=== PATIENT | male | born 1975 | race Caucasian/White ===

== ENCOUNTER 2018-04-10 21:54 | Inpatient (IN) ==
[2018-04-10] MEDS ORDERED: Lidocaine 1%/Epinephrine 1:100,000 Inj 50 ML Vial INFILTRATN ONE (23:04)
[2018-04-10] MEDS ORDERED: Tetanus/Diphtheria Toxoid Adult Vaccine Inj 0.5 ML Vial IM ONE (23:04)
--- NOTE | 2018-04-10 23:08 | ED ---
HPI General Chief complaint: Psychiatric Symptoms Stated complaint: Transfer from [facility]/Psych screen Time Seen by Provider: 04/10/18 23:02 History of Present Illness HPI narrative: This is a 42-year-old male who presents under Nguyen act initially by the Police Department. According to his paperwork yesterday he attempted to kill himself by overdosing on clonazepam and cutting his left wrist. He reports that he has been feeling suicidal for "a while." Symptoms are moderate, duration unknown, no obvious aggravating or alleviating factors. Denies any illicit drug use. Endorses occasional alcohol use. Denies any homicidal ideations, auditory visual hallucinations. Last tetanus vaccination unknown. Denies any numbness or tingling or range of motion limitations in the left hand or wrist. No other complaints. Related Data Home Medications Medication Instructions Recorded Confirmed clonazepam [Klonopin] HS 04/10/18 escitalopram oxalate [Lexapro] 20 mg PO DAILY 04/10/18 04/10/18 lamotrigine [Lamictal] 150 mg PO BID 04/10/18 04/10/18 Allergies Allergy/AdvReac Type Severity Reaction Status Date / Time No Known Allergies Allergy Unverified 04/10/18 22:09 Review of Systems ROS: all other systems reviewed are negative [facility] Medical History Medical History Anxiety (Acute) Bipolar disorder (Acute) Depression (Acute) GERD (gastroesophageal reflux disease) (Acute) Social History Social History Substance History: Active Abuse and Past History Second Hand Smoke Exposure: No Smoking Status: Former smoker Tobacco Type: Cigarettes How Often Do You Have a Drink Containing Alcohol: 2 to 3 times a week Recent Travel in [facility] within the Last 8 Weeks: No Recent Out of Country Travel within the Last 8 Weeks: No Substance Abuse Detail Alcohol: Substance Use Status: Active Route Used Substance Abuse: By Mouth Substance Frequency: 6 pack a week Reason for Use: Calm Down Immunization History Tetanus Immunization: Unsure Hx Influenza Vaccine This Season: No Exam Narrative Exam Narrative: GENERAL: Well-developed well-nourished male no acute distress SKIN: Warm and dry. 5 cm laceration volar aspect left wrist no bleeding currently. HEAD: Atraumatic. Normocephalic. EYES: Pupils equal and round. No scleral icterus. No injection or drainage. ENT: No nasal bleeding or discharge. Mucous membranes pink and moist. NECK: Trachea midline. No JVD. CARDIOVASCULAR: Regular rate and rhythm. No murmur appreciated. RESPIRATORY: No accessory muscle use. Clear to auscultation. Breath sounds equal bilaterally. GASTROINTESTINAL: Abdomen soft, non-tender, nondistended. Hepatic and splenic margins not palpable. MUSCULOSKELETAL: No obvious deformities. Skin as noted above. The patient maintains full range of motion and full strength in the left hand and left wrist. Distal sensation is preserved in the median radial and ulnar nerve distributions, capillary refill less than 2 seconds all digits left hand, 2+ radial pulse. NEUROLOGICAL: Awake and alert. No obvious cranial nerve deficits. Motor grossly within normal limits. Normal speech. PSYCHIATRIC: Depressed mood. Procedures Laceration Laceration 1: Site: upper extremity Side (If applicable): left Size (cm): 5 Description: irregular Depth: simple, single layer Anesthetic used: with epi Anesthesia technique:: local infiltration Amount (mL): 8 Pre-repair:: wound explored and irrigated extensively Skin layer closed with: other (PROLENE) Size (cm): 3-0 Number of sutures:: 10 Technique:: simple, interrupted Course Initial Documented Vital Signs Temperature 98.2 F 04/10/18 22:11 Pulse Rate 80 04/10/18 22:11 Respiratory Rate 16 04/10/18 22:11 Blood Pressure 130/75 04/10/18 22:11 Pulse Oximetry 98 04/10/18 22:11 Last Documented Vital Signs Temperature 98.2 F 04/10/18 22:11 Pulse Rate 80 04/10/18 22:11 Respiratory Rate 18 04/11/18 00:00 Blood Pressure 130/75 04/10/18 22:11 Pulse Oximetry 98 04/10/18 22:11 Medical Decision Making [facility] Narrative Medical decision making narrative: Tetanus status updated, laceration will be repaired, he verbally consents. Mental health screening discussed with the patient. Psychiatric screen ordered. The patient is medically cleared for psychiatric disposition. Medical Screen Exam Complete: Yes Emergency Medical Condition: Yes Differential Diagnosis Differential Diagnosis: Major depressive disorder, depressive disorder not otherwise specified, acute psychosis, substance-induced mood disorder, adjustment reaction Lab Data Result diagrams: 04/10/18 23:09 04/10/18 23:09 Lab Results 04/10/18 04/10/18 Range/Units 23:09 23:09 WBC 7.1 (4.0-11.0) th/mm3 RBC 4.48 L (4.50-5.90) mil/mm3 Hgb 13.6 (13.0-17.0) gm/dL Hct 40.5 (39.0-51.0) % MCV 90.2 (80.0-100.0) fL MCH 30.3 (27.0-34.0) pg MCHC 33.6 (32.0-36.0) % RDW 13.0 (11.6-17.2) % Plt Count 208 (150-450) th/mm3 MPV 8.9 (7.0-11.0) fL Neut % (Auto) 60.3 (16.0-70.0) % Lymph % (Auto) 29.6 (9.0-44.0) % [place]kins % (Auto) 8.4 H (0.0-8.0) % Eos % (Auto) 1.1 (0.0-4.0) % Baso % (Auto) 0.6 (0.0-2.0) % Neut # (Auto) 4.3 (1.8-7.7) th/mm3 Lymph # (Auto) 2.1 (1.0-4.8) th/mm3 [place] # (Auto) 0.6 (0.0-0.9) th/mm3 Eos # (Auto) 0.1 (0.0-0.4) th/mm3 Baso # (Auto) 0.0 (0.0-0.2) th/mm3 WBC Differential . Differential Comment Auto diff final Sodium 143 (136-145) meq/L Potassium 3.5 (3.5-5.1) meq/L Chloride 106 (98-107) meq/L Carbon Dioxide 31.0 (21.0-32.0) meq/L Anion Gap 6 (5-15) meq/L BUN 17 (7-18) mg/dL Creatinine 1.24 (0.60-1.30) mg/dL Estimated GFR 63 L (>89) mL/min Random Glucose 89 (74-106) mg/dL Calcium 8.5 (8.5-10.1) mg/dL Total Bilirubin 0.4 (0.2-1.0) mg/dL AST 16 (15-37) U/L ALT 39 (12-78) U/L Alkaline Phosphatase 81 (45-117) U/L Total Protein 8.1 (6.4-8.2) g/dL Albumin 3.8 (3.4-5.0) g/dL TSH 1.790 (0.358-3.740) uIU/mL Serum Alcohol Less than 3 (0-5) mg/dL Discharge Plan Discharge Disposition Patient Disposition: 30 Still Patient Discharge Condition Condition: Stable Discharge Details Diagnosis: Laceration of left upper extremity, Encounter for medical clearance for patient hold Physicians Team ED Provider: Adan Ortega ED Midlevel Provider: Freddy Foley Rxs /Orders / Referrals /Forms Prescriptions: No Action lamotrigine [Lamictal] 150 mg Tablet 150 mg PO BID RF: 0 clonazepam [Klonopin] 0.5 mg Tablet HS RF: 0 escitalopram oxalate [Lexapro] 20 mg Tablet 20 mg PO DAILY RF: 0 Discharge Instructions Additional Instructions: Wash the wound daily with soap and water and apply antibiotic cream. Return in approximately 10-14 days for suture removal. Status ED Status: Medically Cleared
[2018-04-10 23:25] LABS: Baso % (Auto) 0.6 % (0.0-2.0); Eos # (Auto) 0.1 th/mm3 (0.0-0.4); Eos % (Auto) 1.1 % (0.0-4.0); Hematocrit 40.5 % (39.0-51.0); Hemoglobin 13.6 gm/dL (13.0-17.0); Lymph # (Auto) 2.1 th/mm3 (1.0-4.8); Lymph % (Auto) 29.6 % (9.0-44.0); Mean Corpuscular HGB Conc 33.6 % (32.0-36.0); Mean Corpuscular Hemoglobin 30.3 pg (27.0-34.0); Mean Corpuscular Volume 90.2 fL (80.0-100.0); Mean Platelet Volume 8.9 fL (7.0-11.0); Mono # (Auto) 0.6 th/mm3 (0.0-0.9); Mono % (Auto) 8.4 % (0.0-8.0); Neut # (Auto) 4.3 th/mm3 (1.8-7.7); Neut % (Auto) 60.3 % (16.0-70.0); Platelet Count 208 th/mm3 (150-450); Red Blood Count 4.48 mil/mm3 (4.50-5.90); White Blood Count 7.1 th/mm3 (4.0-11.0)
[2018-04-10 23:45] LABS: Alanine Aminotransferase 39 U/L (12-78); Albumin 3.8 g/dL (3.4-5.0); Anion Gap 6 meq/L (5-15); Aspartate Aminotransferase 16 U/L (15-37); Blood Urea Nitrogen 17 mg/dL (7-18); Calcium 8.5 mg/dL (8.5-10.1); Chloride 106 meq/L (98-107); Glomerular Filtration Rate 63 mL/min (>89); Glucose,Random 89 mg/dL (74-106); Potassium 3.5 meq/L (3.5-5.1); Sodium 143 meq/L (136-145)
[2018-04-10 23:55] LABS: Alkaline Phosphatase 81 U/L (45-117); Total Protein 8.1 g/dL (6.4-8.2)
[2018-04-11] MEDS ORDERED: Aluminum/Magnesium/Simethacone Susp 30 ML UDC PO PRN (17:13)
[2018-04-11] MEDS ORDERED: LORazepam 1 MG Tablet PO PRN (17:13)
--- NOTE | 2018-04-11 17:51 | ED ---
HPI - Psych - General Source: patient Limitations: no limitations - History of Present Illness complaint: suicidal ideation Onset (ago): month(s) Duration: constant History of same: No - General Chief Complaint: Psychiatric Symptoms Stated Complaint: Transfer from [facility]/Psych screen Time Seen by Provider: 04/10/18 23:02 - History of Present Illness HPI Narrative: This is a 42 year-old patient who presents under a Nguyen act for a suicide attempt. Patient is not previously known to this psychiatry department. Reviewed electronic medical record, labs, discussed case with staff. Nurse reports patient has been no behavioral issues while here. He was evaluated in delta 37. I found him awake, alert, and oriented 4. His speech is clear, logical, organized, of normal gaston and volume. His mood and affect are sad. When asked if he still feels suicidal he responded, "I would choose another method this time, one that works". He denies homicidal ideation, auditory or visual hallucinations. His mood is sad and his affect is blunted. There is no indication of psychosis or leslie. When asked why he is here patient responds, "things are not that good I suppose ". He states that the suicide attempt was "a long time coming" and also that it was not spur of the moment he reports he has been planning this for "a long time". When asked what brought these feelings on he states, "I just exist I have no life". He reports that he lives with his and son. He works from his home and hates his job. He does not drive due to losing his license from [place]. States that part of the problem is that his has a good job, makes good money, and frequently takes vacations by herself. He goes on to say that they just exist together others and avoidance of conversations, "we discussed nothing of consequence". His son is 13 years old he seems to get along quite well with him is proud of them. He reports that he quit smoking "many years ago , drinks 1 sixpack a week, "that is my allotted ration", and denies using substances. Although, he states "I love cocaine but I have not use it in a really long time". He self reports intermittent feelings of paranoia and defensiveness. He states that he is under the care of Dr. Marcelino for bipolar disorder. He reports that he is being compliant with his medications. He states that his last inpatient admission was in 2008. However, he denies any previous suicidal attempts. Does report having been in her serrated for up to a year due to DUIs and driving infractions. (Ana Goodrich) - Related Data Home Medications Medication Instructions Recorded Confirmed clonazepam [Klonopin] HS 04/10/18 escitalopram oxalate [Lexapro] 20 mg PO DAILY 04/10/18 04/10/18 lamotrigine [Lamictal] 150 mg PO BID 04/10/18 04/10/18 Allergies Allergy/AdvReac Type Severity Reaction Status Date / Time No Known Allergies Allergy Unverified 04/10/18 22:09 Review of Systems All other systems reviewed negative except as [facility] - History History Provided By: Patient, Law Enforcement - Medical History Medical History: Medical History (Last Reviewed 04/11/18 @ 17:57 by FRANCIS Bloom) Anxiety Bipolar disorder Depression GERD (gastroesophageal reflux disease) - Tobacco History Second Hand Smoke Exposure: No Tobacco Use In Past 30 Days: No Smoking Status: Former smoker Tobacco Type: Cigarettes - Alcohol History How Often Do You Have a Drink Containing Alcohol: 2 to 3 times a week - Substance Use History Substance History: Active Abuse, Past History - Substance Use Type Alcohol Status: Active Route Used: By Mouth Frequency: 6 pack a week Reason for Use: Calm Down - Travel History Recent Travel in the [place] Within the Last 8 Weeks: No Recent Travel Out of the Country Within the Last 8 Weeks: No - Immunization History Tetanus Immunization: Unsure Hx Influenza Vaccine This Season: No Psychiatric History - Psychiatric History Psychiatric Treatment History: History of Psychiatric Treatment, History of Hospitalization in a Psychiatric Facility History of Inpatient Treatment: Yes Firearms in Home: No - Psychiatric History Currently established outpatient with Dr. Marcelino. Reports being treated for bipolar disorder. He states he is compliant with his medication. (Ana Goodrich) - Legal History Incarcerations related to drinking and driving infractions. (Ana oGodrich) - Family Psychiatric History Denies (Ana Goodrich) Physical Exam - General Limitations: no limitations General appearance: alert - Head Head exam: atraumatic - Extremities Exam Extremities exam: Present: other - Psychiatric Psychiatric exam: Present: depressed, flat affect - Skin Skin exam: Present: other - Expanded Skin Exam Type of lesion: Present: laceration (Approximately 5 cm to the volar aspect of the left wrist with 10 sutures present.) Mental Status Examination Appearance: Appropriate, Well dressed/well groomed Consciousness: Alert Orientation: x4 Motor Activity: Normal gait Speech: Unremarkable Language: Adequate Fund of Knowledge: Adequate Attention and Concentration: Adequate Memory: Unremarkable Mood: Sad Affect: Blunt Thought Process & Associations: Intact Thought Content: Appropriate Hallucination Type: None Delusion Type: None Suicidal Ideation: Yes Suicidal Plan: No Suicidal Intention: No Homicidal Ideation: No Homicidal Plan: No Homicidal Intention: No Insight: Fair Judgment: Impulsive Initial Documented Vital Signs Temperature 98.2 F 04/10/18 22:11 Pulse Rate 80 04/10/18 22:11 Respiratory Rate 16 04/10/18 22:11 Blood Pressure 130/75 04/10/18 22:11 Pulse Oximetry 98 04/10/18 22:11 Last Documented Vital Signs Temperature 98.2 F 04/10/18 22:11 Pulse Rate 66 04/11/18 17:49 Respiratory Rate 18 04/11/18 17:49 Blood Pressure 117/65 04/11/18 17:49 Pulse Oximetry 99 04/11/18 17:49 [facility] - Psych - Diagnosis (1) Bipolar disorder current episode depressed Status: Acute - Lab Data Result diagrams: 04/10/18 23:09 04/10/18 23:09 - [facility] Narrative Medical decision making narrative: Patient inflicted a fairly significant laceration to wrist and reported effort to end his life. While, there may be some [place] II characteristics present versus moderate depressive episode, he still endorses suicide and therefore continues to meet Nguyen act criteria. He will be admitted to an inpatient locked psychiatric unit for further evaluation and treatment as deemed necessary. He will be admitted under the Nguyen act however, he does have capacity to sign for his medications. I have obtained his signature for as needed and to continue his maintenance psychotropic medications. (Ana Goodrich) - Lab Data Lab Results 04/10/18 04/10/18 Range/Units 23:09 23:09 WBC 7.1 (4.0-11.0) th/mm3 RBC 4.48 L (4.50-5.90) mil/mm3 Hgb 13.6 (13.0-17.0) gm/dL Hct 40.5 (39.0-51.0) % MCV 90.2 (80.0-100.0) fL MCH 30.3 (27.0-34.0) pg MCHC 33.6 (32.0-36.0) % RDW 13.0 (11.6-17.2) % Plt Count 208 (150-450) th/mm3 MPV 8.9 (7.0-11.0) fL Neut % (Auto) 60.3 (16.0-70.0) % Lymph % (Auto) 29.6 (9.0-44.0) % [place] % (Auto) 8.4 H (0.0-8.0) % Eos % (Auto) 1.1 (0.0-4.0) % Baso % (Auto) 0.6 (0.0-2.0) % Neut # (Auto) 4.3 (1.8-7.7) th/mm3 Lymph # (Auto) 2.1 (1.0-4.8) th/mm3 [place] # (Auto) 0.6 (0.0-0.9) th/mm3 Eos # (Auto) 0.1 (0.0-0.4) th/mm3 Baso # (Auto) 0.0 (0.0-0.2) th/mm3 WBC Differential . Differential Comment Auto diff final Sodium 143 (136-145) meq/L Potassium 3.5 (3.5-5.1) meq/L Chloride 106 (98-107) meq/L Carbon Dioxide 31.0 (21.0-32.0) meq/L Anion Gap 6 (5-15) meq/L BUN 17 (7-18) mg/dL Creatinine 1.24 (0.60-1.30) mg/dL Estimated GFR 63 L (>89) mL/min Random Glucose 89 (74-106) mg/dL Calcium 8.5 (8.5-10.1) mg/dL Total Bilirubin 0.4 (0.2-1.0) mg/dL AST 16 (15-37) U/L ALT 39 (12-78) U/L Alkaline Phosphatase 81 (45-117) U/L Total Protein 8.1 (6.4-8.2) g/dL Albumin 3.8 (3.4-5.0) g/dL TSH 1.790 (0.358-3.740) uIU/mL Serum Alcohol Less than 3 (0-5) mg/dL
[2018-04-11] MEDS: clonazePAM 0.5 MG Tablet PO SCH (20:51)
[2018-04-11] MEDS: Senna/Docusate Sodium 8.6/50 MG Tablet PO SCH (20:51)
[2018-04-11] MEDS: Acetaminophen 325 MG Tablet PO PRN (20:55)
[2018-04-11] MEDS: lamoTRIgine 100 MG Tablet PO SCH (21:33)
[2018-04-12] MEDS: Senna/Docusate Sodium 8.6/50 MG Tablet PO SCH ×2 (08:54→21:19)
[2018-04-12] MEDS: lamoTRIgine 100 MG Tablet PO SCH ×2 (08:54→21:19)
[2018-04-12 09:39] LABS: Carbon Dioxide 29.8 meq/L (21.0-32.0); Potassium 3.9 meq/L (3.5-5.1)
[2018-04-12 09:42] LABS: Chol/HDL Ratio 5.26 Ratio; HDL Cholesterol 36.5 mg/dL (40.0-60.0)
[2018-04-12 10:58] LABS: Hemoglobin A1c 5.5 % (4.3-6.0)
--- NOTE | 2018-04-12 12:17 | P.HPPSY ---
Provisional Diagnosis Admission Date: April 11, 2018 17:13 [place] I.: Bipolar disorder, current episode depressive, alcohol use disorder Competence Certification of Person's Competence To Provide Express and Informed Consent I have personally examined Soy Vick, a person being served at [facility] on, April 12, 2018 1206. Express and informed consent means consent voluntarily given in writing, by a competent person, after sufficient explanation and disclosure of the subject matter involved to enable the person to make a knowing and willful decision without any element of force, fraud, deceit, duress, or other form of constraint or coercion. This person is 18 years of age or older, is not now known to be incompetent to consent to treatment with a guardian advocate, and does not have a health care surrogate or proxy currently making medical treatment decisions. I have found this person to be one of the following: [] Competent to provide express and informed consent, as defined above, for voluntary admission to this facility and is competent to provide express and informed consent for treatment. He/she has the consistent capacity to make well reasoned, willful, and knowing decisions concerning his or her medical or mental health treatment. The person fully and consistently understands the purpose of the admission for examination/placement and is fully capable of personally exercising all rights assured [place] Incompetent to provide express and informed consent to voluntary admission, and this is incompetent to provide express and informed consent to treatment. The person must be transferred to involuntary status and a petition for a guardian advocate filed with the Circuit Court. [x] Refusing to provide express and informed consent to voluntary admission but is competent to provide express and informed consent for treatment. The person must be discharged or transferred to involuntary status. Form shall be completed within 24 hours of a person's arrival at the receiving facility and filed in the clinical record of each person: 1. Admitted on a voluntary basis 2. Permitted to provide express and informed consent to his/her own treatment 3. Allowed to transfer from involuntary to voluntary status 4. Prior to permitting a person to consent to his or her own treatment after having been previously found incompetent to consent to treatment. History of Present Illness Capacity: Has capacity History of Present Illness: The patient is a 42 year-old man, first time at [facility], domiciled in [place] with his , he has a 13 years old son, employed at the moment, with a psychiatric history of bipolar disorder, 2 previous psychiatric hospitalizations, the last hospitalization was about 10 years ago in [place], he is on Lamictal 300 mg, Lexapro 10 mg, clonazepam 0.5 mg daily, who presents under a Nguyen act for a suicide attempt by self-inflicted quite deep laceration in his left wrist. Reviewed electronic medical record, labs, discussed case with Unit staff. Nurse reports patient has been no behavioral issues while here. He was seen yesterday by REMINGTON Ronquillo"He was evaluated in [facility] 37. I found him awake, alert, and oriented 4. His speech is clear, logical, organized, of normal gaston and volume. His mood and affect are sad. When asked if he still feels suicidal he responded, "I would choose another method this time, one that works". He denies homicidal ideation, auditory or visual hallucinations. His mood is sad and his affect is blunted. There is no indication of psychosis or leslie". On psychiatric evaluation today the patient is found in his bed in 2700 unit. The patient is calm, cooperative. The patient reports that he has been feeling quite depressed and frustrated. He says that his opinion his life is over and there is not much more to fight for. He says that he has multiple psychosocial stressors, and problems everywhere. Says that he has been having issues in his job, his marriage is also very problematic, he has no money, due to alcohol use he has lost his license, has lost a lot of friends, he feels that he is under 0. He reports that there is no reason for him to live anymore. Has been feeling quite suicidal and he regrets that he did not . At this moment the patient continues to have suicidal thoughts, but no plan. He was able to contract for safety in the unit. He denies homicidal ideation, denies visual and auditory hallucinations. He is oriented x3. He denies the use of illegal drugs reports occasional alcohol. PMHx: No significant medical history PPHx:bipolar disorder, 2 previous psychiatric hospitalizations, the last hospitalization was about 10 years ago in [place], he is on Lamictal 300 mg, Lexapro 10 mg, clonazepam 0.5 mg daily, who presents under a Nguyen act for a suicide attempt by self-inflicted quite deep laceration in his left wrist. Substance Hx: Reports occasional use of alcohol, about 6 packs 3 times per week. 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 This includes certification that hospital inpatient services are reasonable and necessary and in the case of services not specified as inpatient-only under 42 CFR 419.22(n), that they are appropriately provided as inpatient services in accordance to with the 2-midnight benchmark under 43 CFR 412.3(e) I certify that inpatient psychiatric hospital services are medically necessary. Evaluation and treatment and/or diagnostic testing are expected to improve the patient's condition. The patient needs on a daily basis, active treatment furnished directly by or requiring the supervision of inpatient psychiatric facility personnel. Estimated Total Length of Stay (Days): 7 Plans for Post Hospital Care: Home Review of Systems Constitutional: Denies anorexia, Denies body ache(s), Denies chills, Denies daytime sleepiness, Denies excessive sweating, Denies fatigue, Denies fever(s), Denies headache(s), Denies increased appetite, Denies lack of energy, Denies malaise, Denies night sweats, Denies weakness, Denies weight gain, Denies weight loss, Denies other Eyes: Denies blind spots, Denies blurry vision, Denies bulging eyes, Denies change in vision, Denies double vision, Denies discharge, Denies dry eyes, Denies floaters, Denies irritation, Denies itchy eyes, Denies loss of vision, Denies pain, Denies requires corrective lenses, Denies sensitivity to light, Denies other Ears, Nose, Mouth, and Throat: Denies abnormal hearing, Denies bleeding gums, Denies bad breath, Denies change in voice, Denies dental pain, Denies difficulty swallowing, Denies dizziness, Denies dry mouth, Denies ear discharge , Denies ear pain, Denies facial pain, Denies headache(s), Denies hearing loss, Denies hoarseness, Denies lip swelling, Denies nosebleed, Denies mouth lesions, Denies mouth pain, Denies nasal congestion, Denies nasal discharge, Denies nasal obstruction, Denies nasal trauma, Denies neck lump, Denies neck pain, Denies nose pain, Denies pain with swallowing, Denies poor balance, Denies post nasal drip, Denies ringing in the ears, Denies sinus pain, Denies sinus pressure , Denies sore throat, Denies throat swelling, Denies tongue swelling, Denies other Cardiovascular: Denies chest pain, Denies chest pain at rest, Denies chest pain with activity, Denies excessive sweating, Denies fainting, Denies fast heart rate, Denies foot swelling, Denies generalized swelling, Denies irregular heart rhythm, Denies leg pain with activity, Denies leg sores, Denies leg swelling, Denies lightheadedness, Denies radiating jaw, neck or arm pain, Denies rapid, pounding, or irregular heartbeat, Denies shortness of breath, Denies shortness of breath with activity, Denies shortness of breath when lying down, Denies shortness of breath causing sudden awakening, Denies slow heart rate, Denies other Respiratory: Denies change in phlegm color, Denies chest congestion, Denies cough, Denies coughing up blood, Denies excessive phlegm production, Denies pain on inspiration, Denies pain with cough, Denies shortness of breath, Denies shortness of breath with activity, Denies snoring, Denies stridor, Denies wheezing, Denies other Gastrointestinal: Denies abdominal pain, Denies belching, Denies black, tarry stools, Denies bloating, Denies bright, red blood in stools, Denies change in bowel habits, Denies constant urge to pass stool, Denies change in stools, Denies coffee ground vomit, Denies constipation, Denies cramping, Denies difficulty swallowing, Denies excessive passing of gas, Denies feeling full early, Denies heartburn, Denies incontinent of stools, Denies loose stools, Denies nausea, Denies pain with swallowing, Denies vomiting, Denies vomiting blood, Denies other Genitourinary: Denies blood in semen, Denies blood in urine, Denies decreased urination, Denies difficulty urinating, Denies difficulty with ejaculations, Denies erectile dysfunction, Denies genital lesions, Denies genital pain, Denies painful urination, Denies side pain, Denies frequent nighttime urination , Denies painful ejaculations, Denies penile discharge, Denies scrotal swelling , Denies testicle lump, Denies testicle pain, Denies urinary frequency, Denies urinary hesitancy, Denies urinary incontinence, Denies urinary urgency, Denies other Musculoskeletal: Denies abnormal walking, Denies back pain, Denies body aches, Denies decreased muscle mass, Denies deformity, Denies joint pain, Denies joint swelling, Denies limited joint movement, Denies loss of height, Denies muscle cramps, Denies muscle weakness, Denies neck pain, Denies numbness, Denies radiating pain into limb, Denies stiffness, Denies tingling, Denies other Skin/Breast: Denies acne, Denies bleeding lesions, Denies boil, Denies breast swelling, Denies breast skin changes, Denies breast pain, Denies breast lump, Denies change in breast shape, Denies change in hair, Denies change in skin color, Denies changing lesions, Denies dry skin, Denies excessive hair growth, Denies hair loss, Denies itching, Denies lesions, Denies nail changes, Denies new lesions, Denies nipple discharge, Denies non-healing lesions, Denies redness , Denies sensitivity to light, Denies rash, Denies skin pain, Denies skin ulcer , Denies sores, Denies stretch christensen, Denies unusual bruising, Denies wounds, Denies yellowing of the skin, Denies other Neurologic: Denies abnormal hearing, Denies abnormal movements, Denies abnormal speech, Denies abnormal walking, Denies behavioral changes, Denies burning sensations, Denies confusion, Denies dizziness, Denies fainting, Denies frequent falls, Denies headache(s), Denies lack of coordination, Denies localized weakness, Denies loss of vision, Denies memory loss, Denies numbness, Denies other visual disturbances, Denies radiating pain, Denies restless legs, Denies convulsions, Denies seizure-like activity, Denies sensory deficit, Denies tingling, Denies tingling/numbness/burning sensations, Denies tremor(s), Denies unsteadiness, Denies weakness, Denies other Psychiatric: Reports depression, Reports mood swings, Reports thoughts of hurting/killing yourself, Denies abnormal sleep pattern, Denies anxiety, Denies behavioral changes, Denies change in appetite, Denies change in sex drive, Denies confusion, Denies difficulty concentrating, Denies hearing things others do not hear, Denies hopelessness, Denies irritability, Denies lack of enjoyment , Denies memory loss, Denies panic attacks, Denies paranoia, Denies seeing things others do not see, Denies sensing things others do not sense, Denies tactile hallucinations, Denies thoughts of hurting/killing others, Denies other Endocrine: Denies cold intolerance, Denies excessive sweating, Denies flushing, Denies heat intolerance, Denies increased hunger, Denies increased thirst, Denies increased urination, Denies rapid, pounding, or irregular heartbeat, Denies other Hematologic/Lymphatic: Denies easy bleeding, Denies easy bruising, Denies enlarged lymph nodes, Denies other PMFSH - History History Provided By: Patient - Medical History Medical History: Medical History (Last Reviewed 04/11/18 @ 17:57 by FRANCIS Bloom) Anxiety Bipolar disorder Depression GERD (gastroesophageal reflux disease) - Tobacco History Second Hand Smoke Exposure: No Tobacco Use In Past 30 Days: Yes Smoking Status: Former smoker Tobacco Type: Cigarettes - Alcohol History How Often Do You Have a Drink Containing Alcohol: 2 to 4 times a month - Substance Use History Substance History: Active Abuse - Substance Use Type Alcohol Status: Active Route Used: By Mouth Frequency: daily-6 pack/week Reason for Use: Get High - Travel History Recent Travel in the [facility] Within the Last 8 Weeks: No Recent Travel Out of the Country Within the Last 8 Weeks: No - Immunization History Tetanus Immunization: Unsure Hx Influenza Vaccine This Season: No Medications and Allergies Active Medications: Active Medications Acetaminophen (Tylenol) 650 mg PO Q4H PRN PRN Reason: Pain 1-5 or Temp >101F Last Admin: 04/11/18 20:55 Dose: 650 mg Al Hydrox/Mg Hydrox/Simethicone (Mag-Al Plus Susp Liq) 30 ml PO Q6H PRN PRN Reason: DYSPEPSIA Clonazepam (Klonopin) 0.5 mg PO HS STACY Last Admin: 04/11/18 20:51 Dose: 0.5 mg Diphenhydramine HCl (Benadryl) 50 mg PO HS PRN PRN Reason: INSOMNIA Last Admin: 04/11/18 20:51 Dose: 50 mg Escitalopram Oxalate (Lexapro) 20 mg PO DAILY [facility] Last Admin: 04/12/18 08:54 Dose: 20 mg Lamotrigine (Lamictal) 150 mg PO BID [facility] Last Admin: 04/12/18 08:54 Dose: 150 mg Lorazepam (Ativan) 1 mg PO Q6H PRN PRN Reason: MODERATE TO SEVERE ANXIETY Lorazepam (Ativan Inj) 1 mg IM Q6H PRN PRN Reason: MODERATE TO SEVERE ANXIETY Lorazepam (Ativan Inj) 0.5 mg IM Q12H PRN PRN Reason: MODERATE TO SEVERE ANXIETY Lorazepam (Ativan) 0.5 mg PO Q12H PRN PRN Reason: MODERATE TO SEVERE ANXIETY Senna/Docusate Sodium (Dhara-Colace) 1 tab PO BID [facility] Last Admin: 04/12/18 08:54 Dose: Not Given Allergies Allergy/AdvReac Type Severity Reaction Status Date / Time No Known Allergies Allergy Unverified 04/10/18 22:09 Home Medications Medication Instructions Recorded Confirmed Type clonazepam [Klonopin] 04/10/18 History escitalopram oxalate [Lexapro] 20 mg PO DAILY 04/10/18 04/10/18 History lamotrigine [Lamictal] 150 mg PO BID 04/10/18 04/10/18 History Results - Labs CBC & Chem 7: 04/10/18 23:09 04/12/18 08:58 Labs: Laboratory Results - last 24 hr 04/12/18 04/12/18 08:58 08:58 Sodium 142 Potassium 3.9 Chloride 105 Carbon Dioxide 29.8 Anion Gap 7 BUN 13 Creatinine 1.09 Estimated GFR 73 L Random Glucose 124 H Hemoglobin A1c 5.5 Calcium 8.0 L Triglycerides 352 H Cholesterol 192 LDL Cholesterol, Calc 85 HDL Cholesterol 36.5 L Cholesterol/HDL Ratio 5.26 Exam Vital signs: Vital Signs 04/11/18 17:49 04/11/18 21:55 04/12/18 06:48 Temperature 98.0 F Pulse Rate 66 76 Respiratory Rate 18 16 19 Blood Pressure 117/65 119/66 Pulse Oximetry 99 97 Intake & Output 04/11/18 04/12/18 04/12/18 18:59 06:59 18:59 Other: Date of Last Bowel Movement 04/11/18 Narrative: No tremors, no EPS, no psychomotor agitation or retardation, no withdrawal symptoms at the moment, no gait disturbance Mental Status Examination Appearance: Appropriate, Well dressed/well groomed Consciousness: Alert Orientation: x4 Motor Activity: Normal gait Speech: Unremarkable Language: Adequate Fund of Knowledge: Adequate Attention and Concentration: Adequate Memory: Unremarkable Mood: Sad Affect: Blunt Thought Process & Associations: Intact Thought Content: Appropriate Hallucination Type: None Delusion Type: None Suicidal Ideation: Yes Suicidal Plan: No Suicidal Intention: No Homicidal Ideation: No Homicidal Plan: No Homicidal Intention: No Insight: Fair Judgment: Impulsive Assessment and Plan - Assessment (1) Bipolar disorder current episode depressed Code(s): F31.30 - Bipolar disorder, current episode depressed, mild or moderate severity, unspecified Status: Acute - Plan Plan: Estimated LOS: [] days On psychiatric evaluation today I find a patient that is acutely depressed, with increased sense of worthlessness, helplessness, hopelessness, poor appetite and sleep, suicidal ideation to the point that he tried to commit suicide by self inflicting a very deep laceration to his left arm yesterday. The patient has a psychiatric history of bipolar disorder, previous psychiatric hospitalizations, previous suicide attempts, he is on a psychotropic regimen consistent Lamictal 200 mg, Lexapro 10 mg, clonazepam 0.5 mg twice daily. Patient also has history of alcohol use disorder. Given his recent suicidal attempt the patient has an elevated risk of danger to self. Patient needs psychiatric admission for stabilization. I will increase the Lexapro to 20 mg for depression. Extensive support, motivational psych education provided. Will consult psychiatry for second opinion. Justification for Continued Inpatient Stay: Patient will continue psychiatric admission.
--- NOTE | 2018-04-12 13:47 | P.PNPSY ---
Subjective Remarks: This is a request for second opinion. Admission note was reviewed and I agree with the history. Patient was seen and case was discussed with nursing. Patient remains depressed and we discussed various stressors. Patient says he no longer has suicidal ideation himself in the hospital. He contracts for safety and he discussed the safety plan and he was reminded that we do have one- to-one services available. He is compliant with his medications and behaving well on the unit Mental Status Examination Appearance: Appropriate, Well dressed/well groomed Consciousness: Alert Orientation: x4 Motor Activity: Normal gait Speech: Unremarkable Language: Adequate Fund of Knowledge: Adequate Attention and Concentration: Adequate Memory: Unremarkable Mood: Sad Affect: Blunt Thought Process & Associations: Intact Thought Content: Appropriate Hallucination Type: None Delusion Type: None Suicidal Ideation: Yes Suicidal Plan: No Suicidal Intention: No Homicidal Ideation: No Homicidal Plan: No Homicidal Intention: No Insight: Fair Judgment: Impulsive Assessment and Plan - Assessment (1) Bipolar disorder current episode depressed Code(s): F31.30 - Bipolar disorder, current episode depressed, mild or moderate severity, unspecified Status: Acute - Plan Plan: I agree with the first opinion to continue petition. Criteria include suicide attempt Justification for Continued Inpatient Stay: Patient would decompensate in a less restrictive setting
[2018-04-12] MEDS: Acetaminophen 325 MG Tablet PO PRN (17:06)
[2018-04-12] MEDS: LORazepam 0.5 MG Tablet PO PRN (17:07)
[2018-04-12] MEDS: clonazePAM 0.5 MG Tablet PO SCH (21:19)
[2018-04-13] MEDS: lamoTRIgine 100 MG Tablet PO SCH ×2 (08:21→21:12)
[2018-04-13] MEDS: Senna/Docusate Sodium 8.6/50 MG Tablet PO SCH ×3 (08:21→21:27)
--- NOTE | 2018-04-13 14:04 | P.PNPSY ---
Subjective Remarks: The patient was seen today for psychiatric reevaluation. Case was discussed with nursing charge, documentation from weekend reviewed. On psychiatric evaluation patient continues to be isolated, depressed, concerned about his future, about many psychosocial stressors, but he today is more open to talk about it. Patient feels like he is under cero right now and he is looking for reason to start again. He has vague ideation, no intentions. He has been poorly participatory in the unit, but taking his medications, no significant side effects reported Mental Status Examination Appearance: Appropriate, Well dressed/well groomed Consciousness: Alert Orientation: x4 Motor Activity: Normal gait Speech: Unremarkable Language: Adequate Fund of Knowledge: Adequate Attention and Concentration: Adequate Memory: Unremarkable Mood: Sad Affect: Blunt Thought Process & Associations: Intact Thought Content: Appropriate Hallucination Type: None Delusion Type: None Suicidal Ideation: Yes Suicidal Plan: No Suicidal Intention: No Homicidal Ideation: No Homicidal Plan: No Homicidal Intention: No Insight: Fair Judgment: Impulsive Assessment and Plan - Assessment (1) Bipolar disorder current episode depressed Code(s): F31.30 - Bipolar disorder, current episode depressed, mild or moderate severity, unspecified Status: Acute - Plan Plan: Patient continues to be very depressed, vague suicidal ideation. I will increase Lamictal to 200 mg twice daily to help with depression Justification for Continued Inpatient Stay: Patient has an elevated risk of danger to self out of the structure environment
[2018-04-13] MEDS: Acetaminophen 325 MG Tablet PO PRN (17:50)
[2018-04-13] MEDS: clonazePAM 0.5 MG Tablet PO SCH (21:16)
[2018-04-14] MEDS: lamoTRIgine 100 MG Tablet PO SCH ×2 (08:58→20:37)
[2018-04-14] MEDS: Senna/Docusate Sodium 8.6/50 MG Tablet PO SCH ×2 (08:59→20:38)
--- NOTE | 2018-04-14 14:04 | P.PNPSY ---
Subjective Remarks: Patient was seen today for psychiatric reevaluation. The case was widely discussed with nursing staff and also with counselor. Collateral information from his was also obtained. On the psychiatric evaluation the patient is found sleeping, is calm, cooperative. The patient reports that the reaction with the staff was exaggerated yesterday when he say that there was many ways to commit suicide inside psychiatric unit. He says that he used wanted to be honest, he was not saying that he wanted to commit suicide. Patient reports that he has been sleeping better, but still very interrupted. Patient reports good mood today, he says that he is future oriented, he says that he has been thinking in moving alone in a trailer and tried to continue his life. At this moment he denies suicidal and homicidal ideation, he denies visual and auditory hallucinations. As per , the patient has history of self cutting behavior, aggressive behavior, abusing multiple drugs and being in multiple problems, especially legal problems due to his drug use. She says that the patient is quite manipulative, and there is a high probability that he is tried to express suicidality with attention seeking behavior. She does believe that he is depressed, but he also can be quite dramatic Mental Status Examination Appearance: Appropriate, Well dressed/well groomed Consciousness: Alert Orientation: x4 Motor Activity: Normal gait Speech: Unremarkable Language: Adequate Fund of Knowledge: Adequate Attention and Concentration: Adequate Memory: Unremarkable Mood: Sad Affect: Blunt Thought Process & Associations: Intact Thought Content: Appropriate Hallucination Type: None Delusion Type: None Suicidal Ideation: No Suicidal Plan: No Suicidal Intention: No Homicidal Ideation: No Homicidal Plan: No Homicidal Intention: No Insight: Fair Judgment: Impulsive Assessment and Plan - Assessment (1) Bipolar disorder current episode depressed Code(s): F31.30 - Bipolar disorder, current episode depressed, mild or moderate severity, unspecified Status: Acute (2) Unspecified personality disorder Code(s): F60.9 - Personality disorder, unspecified Status: Acute - Plan Plan: Patient today seems to be doing better. Yesterday suicidal statement, as well of his statement of having multiple ways to commit suicide in the psychiatric unit if he wants to, seems to be more part of a personality pathology than secondary to a mood disorder. This suspicion is confirmed by his who states that the patient has history of aggressive behavior, multiple incarcerations, manipulative behavior, self injury behavior, and other trace that are congruent with a cluster B personality pathology. I will start trazodone 100 mg at bedtime for insomnia and depression. We will start the discharge planning to [facility] tomorrow Justification for Continued Inpatient Stay: continue for admission due to elevated risk of danger
[2018-04-14] MEDS: clonazePAM 0.5 MG Tablet PO SCH (20:37)
[2018-04-14] MEDS ORDERED: traZODone 100 MG Tablet PO SCH (21:00)
[2018-04-15] MEDS: Acetaminophen 325 MG Tablet PO PRN (08:52)
[2018-04-15] MEDS: LORazepam 0.5 MG Tablet PO PRN (08:53)
[2018-04-15] MEDS: lamoTRIgine 100 MG Tablet PO SCH (08:53)
[2018-04-15] MEDS: Senna/Docusate Sodium 8.6/50 MG Tablet PO SCH (08:54)
--- NOTE | 2018-04-15 13:49 | P.DSPSY ---
Psychiatry Discharge Summary Inpatient Psychiatric care?: Yes Advance Directives: No Mental Health Advance Directive: Yes Health Care Proxy: Yes - Admission Admission Date: April 11, 2018 17:13 Brief History: The patient is a 42 year-old man, first time at [facility], domiciled in [place] with his , he has a 13 years old son, employed at the moment, with a psychiatric history of bipolar disorder, 2 previous psychiatric hospitalizations, the last hospitalization was about 10 years ago in [place], he is on Lamictal 300 mg, Lexapro 10 mg, clonazepam 0.5 mg daily, who presents under a Nguyen act for a suicide attempt by self-inflicted quite deep laceration in his left wrist. Reviewed electronic medical record, labs, discussed case with Unit staff. Nurse reports patient has been no behavioral issues while here. He was seen yesterday by REMINGTON Ronquillo"He was evaluated in [facility]. I found him awake, alert, and oriented 4. His speech is clear, logical, organized, of normal gaston and volume. His mood and affect are sad. When asked if he still feels suicidal he responded, "I would choose another method this time, one that works". He denies homicidal ideation, auditory or visual hallucinations. His mood is sad and his affect is blunted. There is no indication of psychosis or leslie". On psychiatric evaluation today the patient is found in his bed in 2700 unit. The patient is calm, cooperative. The patient reports that he has been feeling quite depressed and frustrated. He says that his opinion his life is over and there is not much more to fight for. He says that he has multiple psychosocial stressors, and problems everywhere. Says that he has been having issues in his job, his marriage is also very problematic, he has no money, due to alcohol use he has lost his license, has lost a lot of friends, he feels that he is under 0. He reports that there is no reason for him to live anymore. Has been feeling quite suicidal and he regrets that he did not . At this moment the patient continues to have suicidal thoughts, but no plan. He was able to contract for safety in the unit. He denies homicidal ideation, denies visual and auditory hallucinations. He is oriented x3. He denies the use of illegal drugs reports occasional alcohol. PMHx: No significant medical history PPHx:bipolar disorder, 2 previous psychiatric hospitalizations, the last hospitalization was about 10 years ago in [place], he is on Lamictal 300 mg, Lexapro 10 mg, clonazepam 0.5 mg daily, who presents under a Nguyen act for a suicide attempt by self-inflicted quite deep laceration in his left wrist. Substance Hx: Reports occasional use of alcohol, about 6 packs 3 times per week. 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 An immediate psychiatric assessment and psychosocial assessment were performed. Safety measures were were taken. Patient was transferred to [facility] unit. The patient was a started in medications for depression, Lamictal 100 mg twice daily, Lexapro 20 mg, as a medication for anxiety clonazepam 0.5 mg twice daily. Initially the patient was quite depressed, hopeless, helpless, and nursing generally pessimism and suicidal thoughts. He was also provided with a significant amount of breath supportive psychotherapy and psychoeducation. The patient showed good response to this regimen. With the days he is presently feeling much better. With telephone meeting with his we learned that the patient has history of multiple self cutting behaviors in the past, poor impulse control, manipulative behavior, and he was her opinion that the patient was not really suicidal was just trying to get attention. There were several episodes during this hospitalization that suggested to the team that the patient was also more in the cluster B spectrum than in the mood disorder's. At the moment of discharge the patient is future oriented, denies suicidal enemas ideation, denies visual and auditory hallucinations. The patient has the plan to go back home, to engage in treatment for alcoholism. To continue taking his medications. - Discharge Discharge Date: 04/15/18 Discharge Disposition: Home - Discharge Time > 30 minutes Mental Status Examination Appearance: Appropriate, Well dressed/well groomed Consciousness: Alert Orientation: x4 Motor Activity: Normal gait Speech: Unremarkable Language: Adequate Fund of Knowledge: Adequate Attention and Concentration: Adequate Memory: Unremarkable Mood: Sad Affect: Blunt Thought Process & Associations: Intact Thought Content: Appropriate Hallucination Type: None Delusion Type: None Suicidal Ideation: No Suicidal Plan: No Suicidal Intention: No Homicidal Ideation: No Homicidal Plan: No Homicidal Intention: No Insight: Fair Judgment: Impulsive Discharge/Advance Care Plan - Results Vital Signs: Last Vital Signs Temp 97.4 F L 04/15/18 05:53 Pulse 81 04/15/18 05:53 Resp 19 04/15/18 05:53 BP 108/69 04/15/18 05:53 Pulse Ox 95 04/15/18 05:53 Lab Results: Laboratory Results Hemoglobin A1c 5.5 % (4.3-6.0) 04/12/18 08:58 Triglycerides 352 mg/dL (42-150) H 04/12/18 08:58 Cholesterol 192 mg/dL (120-200) 04/12/18 08:58 LDL Cholesterol, Calc 85 mg/dL (0-99) 04/12/18 08:58 HDL Cholesterol 36.5 mg/dL (40.0-60.0) L 04/12/18 08:58 TSH 1.790 uIU/mL (0.358-3.740) 04/10/18 23:09 Summary of Procedures: None Pending Results: None - Medications Number of antipsychotic medications at discharge: 0 - Discharge Care Plan Goals to Promote Your Health: * To prevent worsening of your condition and complications * To maintain your health at the optimal level Directions to Meet Your Goals: Take your medications as prescribed Follow your dietary instruction Follow activity as directed Keep your appointments as scheduled Take your immunizations and boosters as scheduled If your symptoms worsen call your PCP, if no PCP go to Urgent Care Center or Emergency Room For 10/03 questions related to your inpatient stay or results of tests pending at discharge, please contact Dr. Jamil Erickson MD at [phone] Smoking is Dangerous to Your Health. Avoid second hand smoking
== END 2018-04-15 15:30 | disposition home or self-care (01) ==
LOC: NEPD 21:54 → NEDA 04-11 17:13 → H260 04-11 17:45 → H270 04-12 04:50
PROVIDERS: ADMIT Psychiatry & Neurology Psychiatry; ATTEND Psychiatry & Neurology Psychiatry

== ENCOUNTER 2018-10-04 00:53 | Inpatient (IN) ==
[2018-10-04] MEDS ORDERED: LORazepam 1 MG Tablet PO ONE (01:35)
[2018-10-04 01:56] LABS: Amphetamine Screen,Urine Neg (Neg); Barbiturate Screen,Urine Neg (Neg); Bilirubin,Urine Negative (Negative); Cannabinoid Screen,Urine Neg (Neg); Clarity,Urine Clear (Clear); Cocaine Screen,Urine Neg (Neg); Color,Urine Straw (Yellw/Straw); Glucose,Urine (UA) Negative (Negative); Leukocyte Esterase,Urine Negative (Negative); Mucus,Urine Few /lpf (Occasional); Nitrite,Urine Negative (Negative); Specific Gravity,Urine 1.004 (1.002-1.035)
[2018-10-04 01:57] LABS: Opiate Screen,Urine Neg (Neg)
[2018-10-04 02:09] LABS: Anion Gap 7 meq/L (5-15)
--- NOTE | 2018-10-04 02:19 | ED ---
HPI General Chief Complaint: Psychiatric Symptoms Stated Complaint: Psych eval, [place] [employer] Time Seen by Provider: 10/04/18 01:19 Source: patient and police Mode of arrival: other (police) Limitations: no limitations History of Present Illness HPI Narrative: Patient presents to our facility under a Nguyen act. patient tried sliting his left wrist. Patient denies taking any medications to try to harm himself. Patient does admit to drinking a few alcoholic beverages. Patient states that he does have a history of anxiety and depression. Patient states that he has been taking his medications like he should Relieving factors: none Exacerbating factors: none Associated psychiatric symptoms: Reports depression and suicidal ideation Associated symptoms: Reports denies other symptoms Treatments prior to arrival: Reports none Related Data Home Medications Medication Instructions Recorded Confirmed atorvastatin 20 mg PO DAILY 10/04/18 10/04/18 clonazepam [Klonopin] 0.5 mg PO DAILY 10/04/18 10/04/18 lamotrigine [Lamictal] 200 mg PO BID 10/04/18 10/04/18 Previous Rx's Medication Instructions Recorded escitalopram oxalate [Lexapro] 20 mg PO DAILY #30 amp 04/15/18 Allergies Allergy/AdvReac Type Severity Reaction Status Date / Time No Known Allergies Allergy Verified 10/04/18 01:28 Review of Systems ROS: all other systems reviewed are negative [facility] Medical History Medical History Anxiety (Acute) Bipolar disorder (Acute) Depression (Acute) GERD (gastroesophageal reflux disease) (Acute) Social History Social History Substance History: Active Abuse Second Hand Smoke Exposure: No Smoking Status: Current every day smoker Tobacco Type: Cigarettes How Often Do You Have a Drink Containing Alcohol: 4 or more times a week Recent Travel in [facility] within the Last 8 Weeks: No Recent Out of Country Travel within the Last 8 Weeks: No Immunization History Tetanus Immunization: >5 Years Exam [facility] Head: normocephalic and atraumatic Nose: no nasal discharge and no epistaxis Mouth: moist mucous membranes Eyes Sclera: normal sclerae Pupils: PERRL Neck Neck: trachea midline and no JVD Resp Effort & Inspection: no use of accessory muscles Auscultation: clear to auscultation bilaterally Cardio Rate: regular rate Rhythm: regular rhythm Heart Sounds: no murmurs GI Inspection: non-distended Palpation: soft, no hepatosplenomegaly and nontender Skin General: dry skin (warm) and other (Left anterior forearm near the wrist there is a small 1 cm laceration mostly superficial) Neuro General: alert and awake Cranial Nerves: other Speech: speech normal Motor: no movement abnormalities noted Extrem General: normal to inspection, no clubbing, no cyanosis and no edema Psych Mood: congruent mood Affect: normal affect Judgment: judgment good Procedures Laceration Laceration 1: Site: upper extremity Side (If applicable): left Size (cm): 2 Description: linear Depth: simple, single layer Anesthesia technique:: local infiltration Amount (mL): 5 Pre-repair:: wound explored and irrigated extensively Skin layer closed with: prolene Size (cm): 4-0 Number of sutures:: 4 Technique:: simple, interrupted Course Initial Documented Vital Signs Temperature 98.2 F 10/04/18 00:56 Pulse Rate 104 H 10/04/18 00:56 Respiratory Rate 15 10/04/18 00:56 Blood Pressure 128/85 10/04/18 00:56 Pulse Oximetry 98 10/04/18 00:56 Last Documented Vital Signs Temperature 99 F 10/05/18 00:42 Pulse Rate 72 10/05/18 00:42 Respiratory Rate 12 10/05/18 00:42 Blood Pressure 141/72 H 10/05/18 00:42 Pulse Oximetry 98 10/05/18 00:42 Medical Decision Making MDM Narrative Medical decision making narrative: Patient presents to our facility under a Nguyen act. patient tried sliting his left wrist. Patient denies taking any medications to try to harm himself. Patient does admit to drinking a few alcoholic beverages. Patient states that he does have a history of anxiety and depression. Patient states that he has been taking his medications like he should Patient has a blood pressure of 105/60 pulse is 105 temperature is 98.2 O2 sat is 99 on room air Physical exam shows a 1.5 cm laceration to the left anterior forearm near the wrist that is mostly superficial On repeat exam patient had caused further damage to the laceration to make it deeper and longer Area was sutured by myself with 4 simple interrupted 4-0 Prolene sutures Bleeding was controlled Lab work is unremarkable other than patient's alcohol level is 193 Patient is medically cleared at 0 300 Await psychiatric evaluation in the morning Medical Screen Exam Complete: Yes Emergency Medical Condition: Yes Lab Data Lab results reviewed: Yes I reviewed the patient's lab results. Result diagrams: 10/04/18 03:00 10/04/18 01:15 Lab Results 10/04/18 10/04/18 10/04/18 Range/Units 00:20 00:20 01:15 WBC (4.0-11.0) th/mm3 RBC (4.50-5.90) mil/mm3 Hgb (13.0-17.0) gm/dL Hct (39.0-51.0) % MCV (80.0-100.0) fL MCH (27.0-34.0) pg MCHC (32.0-36.0) % RDW (11.6-17.2) % Plt Count (150-450) th/mm3 MPV (7.0-11.0) fL Neut % (Auto) (16.0-70.0) % Lymph % (Auto) (9.0-44.0) % [place] % (Auto) (0.0-8.0) % Eos % (Auto) (0.0-4.0) % Baso % (Auto) (0.0-2.0) % Neut # (Auto) (1.8-7.7) th/mm3 Lymph # (Auto) (1.0-4.8) th/mm3 [place] # (Auto) (0.0-0.9) th/mm3 Eos # (Auto) (0.0-0.4) th/mm3 Baso # (Auto) (0.0-0.2) th/mm3 WBC Differential Differential Comment Sodium 141 (136-145) meq/L Potassium 4.2 (3.5-5.1) meq/L Chloride 110 H (98-107) meq/L Carbon Dioxide 23.6 (21.0-32.0) meq/L Anion Gap 7 (5-15) meq/L BUN 6 L (7-18) mg/dL Creatinine 1.01 (0.60-1.30) mg/dL Estimated GFR 80 L (>89) mL/min Random Glucose 100 (74-106) mg/dL Calcium 8.6 (8.5-10.1) mg/dL Magnesium 2.4 (1.5-2.5) mg/dL Total Bilirubin 0.2 (0.2-1.0) mg/dL AST 45 H (15-37) U/L ALT 96 H (12-78) U/L Alkaline Phosphatase 111 (45-117) U/L Total Protein 8.9 H (6.4-8.2) g/dL Albumin 4.4 (3.4-5.0) g/dL TSH 2.230 (0.358-3.740) uIU/mL Urine Color Straw (Yellw/Straw) Urine Clarity Clear (Clear) Urine pH 6.0 (5.0-8.5) Ur Specific [place] 1.004 (1.002-1.035) Urine Protein Negative (Neg-Trace) mg/dL Urine Glucose (UA) Negative (Negative) mg/dL Urine Ketones Negative (Negative) mg/dL Urine Occult Blood Small H (Negative) Urine Nitrate Negative (Negative) Urine Bilirubin Negative (Negative) Urine Urobilinogen Less than 2 (Less than 2) mg/dL Ur Leukocyte Esterase Negative (Negative) Urine RBC 1 (0-3) /hpf Urine WBC 1 (0-5) /hpf Urine Mucus Few H (Occasional) /lpf Micro UA Comment Culture not ind Ur Microscopic Review Not Reportable Urine Culture Comments Culture not ind Salicylates (2.8-20.0) mg/dL Urine Opiates Screen Neg (Neg) Acetaminophen Less than 2.0 L (10.0-30.0) mcg/mL Ur Barbiturates Screen Neg (Neg) Ur Amphetamines Screen Neg (Neg) U Benzodiazepines Scrn Neg (Neg) Urine Cocaine Screen Neg (Neg) U Cannabinoids Screen Neg (Neg) Serum Alcohol 193 H (0-5) mg/dL 10/04/18 10/04/18 Range/Units 01:15 03:00 WBC 7.3 (4.0-11.0) th/mm3 RBC 4.24 L (4.50-5.90) mil/mm3 Hgb 13.3 (13.0-17.0) gm/dL Hct 39.3 (39.0-51.0) % MCV 92.6 (80.0-100.0) fL MCH 31.4 (27.0-34.0) pg MCHC 34.0 (32.0-36.0) % RDW 14.0 (11.6-17.2) % Plt Count 230 (150-450) th/mm3 MPV 8.7 (7.0-11.0) fL Neut % (Auto) 60.0 (16.0-70.0) % Lymph % (Auto) 32.3 (9.0-44.0) % [place] % (Auto) 5.9 (0.0-8.0) % Eos % (Auto) 1.2 (0.0-4.0) % Baso % (Auto) 0.6 (0.0-2.0) % Neut # (Auto) 4.4 (1.8-7.7) th/mm3 Lymph # (Auto) 2.4 (1.0-4.8) th/mm3 [place] # (Auto) 0.4 (0.0-0.9) th/mm3 Eos # (Auto) 0.1 (0.0-0.4) th/mm3 Baso # (Auto) 0.0 (0.0-0.2) th/mm3 WBC Differential . Differential Comment Auto diff final Sodium (136-145) meq/L Potassium (3.5-5.1) meq/L Chloride (98-107) meq/L Carbon Dioxide (21.0-32.0) meq/L Anion Gap (5-15) meq/L BUN (7-18) mg/dL Creatinine (0.60-1.30) mg/dL Estimated GFR (>89) mL/min Random Glucose (74-106) mg/dL Calcium (8.5-10.1) mg/dL Magnesium (1.5-2.5) mg/dL Total Bilirubin (0.2-1.0) mg/dL AST (15-37) U/L ALT (12-78) U/L Alkaline Phosphatase (45-117) U/L Total Protein (6.4-8.2) g/dL Albumin (3.4-5.0) g/dL TSH (0.358-3.740) uIU/mL Urine Color (Yellw/Straw) Urine Clarity (Clear) Urine pH (5.0-8.5) Ur Specific [place] (1.002-1.035) Urine Protein (Neg-Trace) mg/dL Urine Glucose (UA) (Negative) mg/dL Urine Ketones (Negative) mg/dL Urine Occult Blood (Negative) Urine Nitrate (Negative) Urine Bilirubin (Negative) Urine Urobilinogen (Less than 2) mg/dL Ur Leukocyte Esterase (Negative) Urine RBC (0-3) /hpf Urine WBC (0-5) /hpf Urine Mucus (Occasional) /lpf Micro UA Comment Ur Microscopic Review Urine Culture Comments Salicylates 4.5 (2.8-20.0) mg/dL Urine Opiates Screen (Neg) Acetaminophen (10.0-30.0) mcg/mL Ur Barbiturates Screen (Neg) Ur Amphetamines Screen (Neg) U Benzodiazepines Scrn (Neg) Urine Cocaine Screen (Neg) U Cannabinoids Screen (Neg) Serum Alcohol (0-5) mg/dL Discharge Plan Discharge Disposition Patient Disposition: Sign Out(ED Internal Use Only) Discharge Condition Condition: Stable Discharge Details Diagnosis: Suicidal ideation, Suicide attempt Physicians Team ED Provider: Topher Díaz ED Midlevel Provider: Flores Celestin Primary Care Provider: Primary Care Umeshi,Kanwal Rxs /Orders / Referrals /Forms Prescriptions: No Action escitalopram oxalate [Lexapro] 20 mg Tablet 20 mg PO DAILY Qty: 30 RF: 0 lamotrigine [Lamictal] 200 mg Tablet 200 mg PO BID RF: 0 atorvastatin 20 mg Tablet 20 mg PO DAILY RF: 0 clonazepam [Klonopin] 0.5 mg Tablet 0.5 mg PO DAILY RF: 0 Status ED Status: Medically Cleared
[2018-10-04 02:21] LABS: Alanine Aminotransferase 96 U/L (12-78); Albumin 4.4 g/dL (3.4-5.0); Alkaline Phosphatase 111 U/L (45-117); Aspartate Aminotransferase 45 U/L (15-37); Blood Urea Nitrogen 6 mg/dL (7-18); Calcium 8.6 mg/dL (8.5-10.1); Carbon Dioxide 23.6 meq/L (21.0-32.0); Chloride 110 meq/L (98-107); Glomerular Filtration Rate 80 mL/min (>89); Glucose,Random 100 mg/dL (74-106); Magnesium 2.4 mg/dL (1.5-2.5); Potassium 4.2 meq/L (3.5-5.1); Sodium 141 meq/L (136-145); Total Protein 8.9 g/dL (6.4-8.2)
[2018-10-04 02:25] LABS: Alcohol 193 mg/dL (0-5)
[2018-10-04 04:37] LABS: White Blood Count 7.3 th/mm3 (4.0-11.0)
[2018-10-04 04:38] LABS: Baso % (Auto) 0.6 % (0.0-2.0); Eos # (Auto) 0.1 th/mm3 (0.0-0.4); Eos % (Auto) 1.2 % (0.0-4.0); Hematocrit 39.3 % (39.0-51.0); Hemoglobin 13.3 gm/dL (13.0-17.0); Lymph # (Auto) 2.4 th/mm3 (1.0-4.8); Lymph % (Auto) 32.3 % (9.0-44.0); Mean Corpuscular Hemoglobin 31.4 pg (27.0-34.0); Mean Corpuscular Volume 92.6 fL (80.0-100.0); Mean Platelet Volume 8.7 fL (7.0-11.0); Mono # (Auto) 0.4 th/mm3 (0.0-0.9); Mono % (Auto) 5.9 % (0.0-8.0); Neut # (Auto) 4.4 th/mm3 (1.8-7.7); Platelet Count 230 th/mm3 (150-450); Red Blood Count 4.24 mil/mm3 (4.50-5.90)
[2018-10-05] MEDS ORDERED: Acetaminophen 325 MG Tablet PO PRN (13:07)
[2018-10-05] MEDS ORDERED: Aluminum/Magnesium/Simethacone Susp 30 ML UDC PO PRN (13:07)
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
[2018-10-05] MEDS: clonazePAM 0.5 MG Tablet PO SCH (16:08)
[2018-10-05] MEDS: lamoTRIgine 100 MG Tablet PO SCH (20:33)
[2018-10-06 07:49] LABS: Calcium 8.6 mg/dL (8.5-10.1); Carbon Dioxide 29.4 meq/L (21.0-32.0)
[2018-10-06 07:54] LABS: Chol/HDL Ratio 4.89 Ratio; HDL Cholesterol 38.2 mg/dL (40.0-60.0)
[2018-10-06] MEDS: lamoTRIgine 100 MG Tablet PO SCH ×2 (08:37→20:50)
[2018-10-06] MEDS: clonazePAM 0.5 MG Tablet PO SCH (08:37)
--- NOTE | 2018-10-06 11:05 | P.HPPSY ---
Provisional Diagnosis Admission Date: October 05, 2018 13:13 [place].: Adjustment disorder with disturbance of mood Alcohol dependent Competence Certification of Person's Competence To Provide Express and Informed Consent I have personally examined Soy Vick, a person being served at [facility] on, October 06, 2018 1054. Express and informed consent means consent voluntarily given in writing, by a competent person, after sufficient explanation and disclosure of the subject matter involved to enable the person to make a knowing and willful decision without any element of force, fraud, deceit, duress, or other form of constraint or coercion. This person is 18 years of age or older, is not now known to be incompetent to consent to treatment with a guardian advocate, and does not have a health care surrogate or proxy currently making medical treatment decisions. I have found this person to be one of the following: [] Competent to provide express and informed consent, as defined above, for voluntary admission to this facility and is competent to provide express and informed consent for treatment. He/she has the consistent capacity to make well reasoned, willful, and knowing decisions concerning his or her medical or mental health treatment. The person fully and consistently understands the purpose of the admission for examination/placement and is fully capable of personally exercising all rights assured [place] [] Incompetent to provide express and informed consent to voluntary admission, and this is incompetent to provide express and informed consent to treatment. The person must be transferred to involuntary status and a petition for a guardian advocate filed with the Circuit Court. [] Refusing to provide express and informed consent to voluntary admission but is competent to provide express and informed consent for treatment. The person must be discharged or transferred to involuntary status. Form shall be completed within 24 hours of a person's arrival at the receiving facility and filed in the clinical record of each person: 1. Admitted on a voluntary basis 2. Permitted to provide express and informed consent to his/her own treatment 3. Allowed to transfer from involuntary to voluntary status 4. Prior to permitting a person to consent to his or her own treatment after having been previously found incompetent to consent to treatment. History of Present Illness Capacity: Has capacity History of Present Illness: HPI: Patient is a 42-year-old male who is and has a 14-year- old son. 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 The patient is in what he describes as a bad marriage which is gone on for many years with his being very independent and his being very controlling. He admits that his is most concerned for him and his alcohol consumption which he minimizes. She also is upset with him when he smokes a cigarette. According to the the patient has been selling their possessions according to the patient holds things that are no longer in value to him. He uses the money to buy alcohol. Patient denies any hallucinatory experiences he denies any suicidality. When I asked the patient why he and his continue to live together he claims that in the past it has been because of their son. Now that the boy is 14 years of age he believes that it would be better off if they were . The patient claims he has been to AA in the past but he does not like group work and claims that he has had some individual therapy but obviously is unchanged so far as his drinking is concerned. Overall, the patient minimizes his drinking and except a little or no responsibility for the problems between he and his .. - Inpatient Certification I certify that the inpatient services were ordered in accordance with Medicare regulations governing the order. This includes certification that hospital inpatient services are reasonable and necessary and in the case of services not specified as inpatient-only under 42 CFR 419.22(n), that they are appropriately provided as inpatient services in accordance to with the 2-midnight benchmark under 43 CFR 412.3(e) I certify that inpatient psychiatric hospital services are medically necessary. Evaluation and treatment and/or diagnostic testing are expected to improve the patient's condition. The patient needs on a daily basis, active treatment furnished directly by or requiring the supervision of inpatient psychiatric facility personnel. Estimated Total Length of Stay (Days): 3 Plans for Post Hospital Care: Home Review of Systems Patient denies any physical complaints at this time he does understand that he has slightly elevated liver enzymes and diminished renal functioning as well as what he already knows elevated lipids. PMFSH - History History Provided By: Patient - Medical History Medical History: Medical History (Last Reviewed 10/05/18 @ 14:44 by Ana Kp, KILN MECH[employer]IC) Anxiety Bipolar disorder Depression GERD (gastroesophageal reflux disease) - Tobacco History Second Hand Smoke Exposure: No Tobacco Use In Past 30 Days: Yes Smoking Status: Heavy tobacco smoker Tobacco Type: Cigarettes - Alcohol History How Often Do You Have a Drink Containing Alcohol: 2 to 3 times a week - Substance Use History Substance History: Past History - Substance Use Type Alcohol Status: Active Route Used: By Mouth Reason for Use: Calm Down, Feels Good - Travel History Recent Travel in the [place] Within the Last 8 Weeks: No Recent Travel Out of the Country Within the Last 8 Weeks: No - Immunization History Tetanus Immunization: >5 Years Hx Influenza Vaccine This Season: Yes Medications and Allergies Active Medications: Active Medications Acetaminophen (Tylenol) 650 mg PO Q4H PRN PRN Reason: Pain 1-5 or Temp >101F Al Hydrox/Mg Hydrox/Simethicone (Mag-Al Plus Susp Liq) 30 ml PO Q6H PRN PRN Reason: DYSPEPSIA Al Hydroxide/Mg Hydroxide (Milk Of Magnesia Liq) 30 ml PO Q12H PRN PRN Reason: Mild Constipation Atorvastatin Calcium (Lipitor) 20 mg PO DAILY [facility] Last Admin: 10/06/18 08:37 Dose: 20 mg Clonazepam (Klonopin) 0.5 mg PO DAILY [facility] Last Admin: 10/06/18 08:37 Dose: 0.5 mg Escitalopram Oxalate (Lexapro) 20 mg PO DAILY [facility] Last Admin: 10/06/18 08:37 Dose: 20 mg Lamotrigine (Lamictal) 200 mg PO BID [facility] Last Admin: 10/06/18 08:37 Dose: 200 mg Nicotine (Habitrol 21 Mg Patch.24 Hr) 1 patch T-DERMAL DAILY [facility] Last Admin: 10/05/18 16:08 Dose: Not Given Allergies Allergy/AdvReac Type Severity Reaction Status Date / Time No Known Allergies Allergy Verified 10/04/18 01:28 Home Medications Medication Instructions Recorded Confirmed Type atorvastatin 20 mg PO DAILY 10/04/18 10/04/18 History clonazepam [Klonopin] 0.5 mg PO DAILY 10/04/18 10/04/18 History lamotrigine [Lamictal] 200 mg PO BID 10/04/18 10/04/18 History Results - Labs CBC & Chem 7: 10/04/18 03:00 10/06/18 06:12 Labs: Laboratory Results - last 24 hr 10/06/18 06:12 Sodium 140 Potassium 4.0 Chloride 106 Carbon Dioxide 29.4 Anion Gap 5 BUN 13 Creatinine 0.93 Estimated GFR 88 L Random Glucose 99 Calcium 8.6 Triglycerides 256 H Cholesterol 187 LDL Cholesterol, Calc 98 HDL Cholesterol 38.2 L Cholesterol/HDL Ratio 4.89 Exam Vital signs: Vital Signs 10/05/18 15:03 10/06/18 05:48 Temperature 98.2 F 98.1 F Pulse Rate 75 68 Respiratory Rate 18 16 Blood Pressure 150/92 H 105/59 L Pulse Oximetry 98 96 Intake & Output 10/05/18 10/06/18 10/06/18 18:59 06:59 18:59 Intake Total 480 / 480 Balance 480 / 480 Weight 90.889 kg Intake: Oral 480 / 480 Other: Weight On Admission 90.889 kg Mental Status Examination Appearance: Appropriate Consciousness: Alert Orientation: x4 Motor Activity: Normal gait Speech: Unremarkable Language: Adequate Fund of Knowledge: Adequate Attention and Concentration: Adequate Memory: Unremarkable Mood: Anxious Affect: Anxious Thought Process & Associations: Intact, Logical Thought Content: Appropriate Hallucination Type: None Delusion Type: None Suicidal Ideation: No Suicidal Plan: No Suicidal Intention: No Homicidal Ideation: No Homicidal Plan: No Homicidal Intention: No Insight: Poor Judgment: Impulsive Assessment and Plan - Plan Plan: Estimated LOS: [] days 3 days Justification for Continued Inpatient Stay: Additional time needed to evaluate patient's denial of any will risk. Collateral information is needed
[2018-10-06 16:22] LABS: Hemoglobin A1c 5.6 % (4.3-6.0)
[2018-10-06 18:09] VITALS: BP 108/59; PULSE 73; RESP 17; TEMP 97.8; O2SAT 95
[2018-10-07] MEDS: clonazePAM 0.5 MG Tablet PO SCH (08:33)
[2018-10-07] MEDS: lamoTRIgine 100 MG Tablet PO SCH (08:33)
--- NOTE | 2018-10-07 10:17 | P.DSPSY ---
Psychiatry Discharge Summary Inpatient Psychiatric care?: Yes Advance Directives: No Mental Health Advance Directive: No Health Care Proxy: No - Admission Admission Date: October 05, 2018 13:13 Brief History: HPI: Patient is a 42-year-old male who is and has a 14-year- old son. 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 The patient is in what he describes as a bad marriage which is gone on for many years with his being very independent and his being very controlling. He admits that his is most concerned for him and his alcohol consumption which he minimizes. She also is upset with him when he smokes a cigarette. According to the the patient has been selling their possessions according to the patient holds things that are no longer in value to him. He uses the money to buy alcohol. Patient denies any hallucinatory experiences he denies any suicidality. When I asked the patient why he and his continue to live together he claims that in the past it has been because of their son. Now that the boy is 14 years of age he believes that it would be better off if they were . The patient claims he has been to AA in the past but he does not like group work and claims that he has had some individual therapy but obviously is unchanged so far as his drinking is concerned. Overall, the patient minimizes his drinking and except a little or no responsibility for the problems between he and his .. Tobacco Use In Past 30 Days: Yes How Often Do You Have a Drink Containing Alcohol: 2 to 3 times a week Hospital Course: Course in the hospital. Patient had a brief course in the hospital following a Nguyen act for repeated episodes of intoxication and threats of self-harm. Patient gave a long history of developing conflict in his marriage mostly associated with the patient's alcohol but blames on his 's being controlling. When asked if he was not in control why he would not expect someone to cared for him to at least try. His total lack of insight made this kind of interpretation a LEEP beyond his personalities capabilities. The patient will return home and work and conflict with his . He has promised to follow-up with a therapist, stating that he has tried AA but he does not like group treatments. Patient spent most of the time book. He was encouraged to participate in the activities but failed to do so. - Discharge Discharge Date: 10/07/18 Discharge Disposition: Home - Discharge Instructions Discharge Diet: Regular Diet Activities You Can Perform: Regular- No Restrictions - Discharge Time > 30 minutes Mental Status Examination Appearance: Appropriate Consciousness: Alert Orientation: x4 Motor Activity: Normal gait Speech: Unremarkable Language: Adequate Fund of Knowledge: Adequate Attention and Concentration: Adequate Memory: Unremarkable Mood: Anxious Affect: Anxious Thought Process & Associations: Intact, Logical Thought Content: Appropriate Hallucination Type: None Delusion Type: None Suicidal Ideation: No Suicidal Plan: No Suicidal Intention: No Homicidal Ideation: No Homicidal Plan: No Homicidal Intention: No Insight: Poor Judgment: Impulsive Discharge/Advance Care Plan - Results Vital Signs: Last Vital Signs Temp 97.8 F 10/06/18 18:08 Pulse 73 10/06/18 18:08 Resp 17 10/06/18 18:08 BP 108/59 L 10/06/18 18:08 Pulse Ox 95 10/06/18 18:08 Lab Results: Abnormal Lab Results 10/06/18 06:12 Hemoglobin A1c 5.6 Laboratory Results Hemoglobin A1c 5.6 % (4.3-6.0) 10/06/18 06:12 Triglycerides 256 mg/dL (42-150) H 10/06/18 06:12 Cholesterol 187 mg/dL (120-200) 10/06/18 06:12 LDL Cholesterol, Calc 98 mg/dL (0-99) 10/06/18 06:12 HDL Cholesterol 38.2 mg/dL (40.0-60.0) L 10/06/18 06:12 TSH 2.230 uIU/mL (0.358-3.740) 10/04/18 01:15 Urine Culture Comments Culture not ind 10/04/18 00:20 Summary of Procedures: None Pending Results: None - Medications Number of antipsychotic medications at discharge: 0 - Discharge Care Plan Goals to Promote Your Health: * To prevent worsening of your condition and complications * To maintain your health at the optimal level Directions to Meet Your Goals: Take your medications as prescribed Follow your dietary instruction Follow activity as directed Keep your appointments as scheduled Take your immunizations and boosters as scheduled If your symptoms worsen call your PCP, if no PCP go to Urgent Care Center or Emergency Room For 10/03 questions related to your inpatient stay or results of tests pending at discharge, please contact Dr. Phillip Montero MD at Smoking is Dangerous to Your Health. Avoid second hand smoking
== END 2018-10-07 13:30 | disposition home or self-care (01) | DRG 897 ==
LOC: NEPD 00:53 → NEDA 10-05 13:13 → H260 10-05 14:15
PROVIDERS: ADMIT Psychiatry & Neurology Child & Adolescent Psychiatry; ATTEND Psychiatry & Neurology Child & Adolescent Psychiatry